=== PATIENT | male | born 1955 | race Asian ===

== ENCOUNTER 2018-06-18 05:57 | Day surgery (SDC) | payer OTHER ==
[~2018-06-18] VITALS: Ht 177.8 cm; Wt 54.5 kg
[~2018-06-18 05:57] MED LIST: ASPI-1182 PO; DICLOFENAC SODIUM 0.1% 2.5 ML OPHTHALMIC SOLUTION ONE; ENTE1TAB2 PO; LORA10TA7 PO; MECL12.585 PO; MOXIFLOXACIN HCL 0.5% 3 ML OPHTHALMIC SOLUTION ONE; PHENYLEPHRINE HCL 2.5% 2 ML OPHTHALMIC SOLUTION ONE; RINGERS SOLUTION,LACTATED 500 ML IV ONE; SIMV-259 PO; TROPICAMIDE 1% 2 ML OPHTHALMIC SOLUTION ONE
[2018-06-18] MEDS ORDERED: FentaNYL CITRATE-PF 100 MCG/2 ML VIAL IVP ONE (05:58)
[2018-06-18] MEDS ORDERED: HYALURONATE SOD/CHONDROITIN SOD 0.5 ML VIAL IO ONE (05:58)
[2018-06-18] MEDS ORDERED: HYALURONATE SODIUM 12 MG/ML 0.8 ML SYRINGE IO ONE (05:58)
[2018-06-18] MEDS ORDERED: POVIDONE-IODINE 10% 15 ML SOLUTION UD TP ONE (05:58)
[2018-06-18] MEDS ORDERED: TETRACAINE HCL VISCOUS 0.5% 0.6 ML OPHTHALMIC SOLUTION OS ONE (05:58)
[2018-06-18] MEDS ORDERED: LIDOCAINE/PF 1% 2 ML VIAL IM ONE (05:58)
[2018-06-18] MEDS ORDERED: ACETYLCHOLINE CHLORIDE 1 EA INTRAOCULAR SOLUTION KIT IO ONE (05:58)
[2018-06-18] MEDS ORDERED: MIDAZOLAM HCL 2 MG/2 ML VIAL IVP ONE (05:58)
[2018-06-18] MEDS ORDERED: EPINEPHrine 1:1,000 [1 MG/ML] AMP IM ONE (05:58)
[2018-06-18] MEDS ORDERED: DEXAMETHASONE SOD PHOS 4 MG/ML VIAL IVP ONE (05:58)
[2018-06-18] MEDS ORDERED: RINGERS SOLUTION,LACTATED 500 ML IV ONE (06:00)
[2018-06-18] MEDS ORDERED: MOXIFLOXACIN HCL 0.5% 3 ML OPHTHALMIC SOLUTION OS ONE (06:00)
[2018-06-18] MEDS ORDERED: DICLOFENAC SODIUM 0.1% 2.5 ML OPHTHALMIC SOLUTION OS ONE (06:00)
[2018-06-18] MEDS: TROPICAMIDE 1% 2 ML OPHTHALMIC SOLUTION OS SCH ×2 (06:39→06:45)
[2018-06-18] MEDS: PHENYLEPHRINE HCL 2.5% 2 ML OPHTHALMIC SOLUTION OS SCH ×2 (06:39→06:45)
[2018-06-18] MEDS ORDERED: AcetaZOLAMIDE 250 MG TABLET PO ONE (10:00)
== END 2018-06-18 10:00 | disposition home or self-care (01) ==
LOC: SURGERY 05:57
PROVIDERS: ATTEND Specialist
DX: H25.13 Age-related nuclear cataract, bilateral (principal); E78.00 Pure hypercholesterolemia, unspecified; M54.9 Dorsalgia, unspecified; F17.200 Nicotine dependence, unspecified, uncomplicated; Z72.89 Other problems related to lifestyle; Z79.82 Long term (current) use of aspirin; Z98.890 Other specified postprocedural states; Z79.01 Long term (current) use of anticoagulants; Z86.19 Personal history of other infectious and parasitic diseases
CPT/HCPCS: 66984; C1780; J0171; J1100; J2250; J3010; J3490 ×2; J7120